=== PATIENT | male | born 1990 | race Hispanic/Latino ===

== ENCOUNTER 2020-06-17 05:02 | Emergency (ER) | payer SELFPAY ==
--- OUTSIDE RECORDS SUMMARY | 2020-06-17 05:04 | XMS REPORT | Continuity of Care Document ---
:1990 Author Organization [facility] t Address [address] [place] [address] Dr. Ad[address] [place] [address] Care Team Providers Name Role Phone Maxime DE LA ROSA P Attending Clinician Unavailable Problems This patient has no known problems. Allergies, Adverse Reactions, Alerts This patient has no known allergies or adverse reactions. Medications This patient has no known medications. Procedures This patient has no known procedures. Encounters Start End Encounter Admission Attending Care Care Encounter Source Date/Time Date/Time Type Type Clinicians Facility Department ID 2019-10-22 2019-10-22 Telephone SHILA Swartz [id number] 00:00:00 00:00:00 Keren NAGEL [id number] [facility] [id number] Results This patient has no known results.
--- NOTE | 2020-06-17 07:10 | EDPHYS ---
Physician Documentation [facility] Name: Teodoro Lopez Age: 30 yrs Sex: Male : 1990 Arrival Date: 06/17/2020 Time: 05:06 Bed 19 Private MD: ED Physician Yoni Elkins HPI: 06/17 06:55 This 30 yrs old Male presents to ER via Ambulatory with complaints of tw4 Shortness Of Breath, Chest Pain. 06:55 The patient has shortness of breath with light activity. Onset: The symptoms/episode tw4 began/occurred 3 day(s) ago. Duration: The symptoms are continuous, and are unchanged since they started. The patient's shortness of breath has no apparent modifying factors. Associated signs and symptoms: The patient has no apparent associated signs or symptoms. Severity of symptoms: At their worst the symptoms were moderate in the emergency department the symptoms are unchanged. The patient has not experienced similar symptoms in the past. Historical: - Allergies: 05:21 No Known Allergies; sg - Home Meds: 05:21 None [Active]; sg - PMHx: 05:21 None; sg - Immunization history:: Adult Immunizations up to date. - Social history:: Smoking status: Patient reports the use of cigarette tobacco products. ROS: 06:55 Constitutional: Negative for fever, chills, and weight loss, Eyes: Negative for injury, tw4 pain, redness, and discharge, Cardiovascular: Negative for chest pain, palpitations, and edema, Abdomen/GI: Negative for abdominal pain, nausea, vomiting, diarrhea, and constipation, Back: Negative for injury and pain, MS/Extremity: Negative for injury and deformity, Skin: Negative for injury, rash, and discoloration, Neuro: Negative for headache, weakness, numbness, tingling, and seizure. 06:55 Respiratory: Positive for shortness of breath, Negative for dyspnea on exertion, hemoptysis, orthopnea, pleurisy. Exam: 06:55 Constitutional: This is a well developed, well nourished patient who is awake, alert, tw4 and in no acute distress. Head/Face: Normocephalic, atraumatic. Chest/axilla: Normal chest wall appearance and motion. Nontender with no deformity. No lesions are appreciated. Cardiovascular: Regular rate and rhythm with a normal S1 and S2. No gallops, murmurs, or rubs. Normal PMI, no JVD. No pulse deficits. Abdomen/GI: Soft, non-tender, with normal bowel sounds. No distension or tympany. No guarding or rebound. No evidence of tenderness throughout. Back: No spinal tenderness. No costovertebral tenderness. Full range of motion. Skin: Warm, dry with normal turgor. Normal color with no rashes, no lesions, and no evidence of cellulitis. MS/ Extremity: Pulses equal, no cyanosis. Neurovascular intact. Full, normal range of motion. Neuro: Awake and alert, GCS 15, oriented to person, place, time, and situation. Cranial nerves II-XII grossly intact. Motor strength 5/5 in all extremities. Sensory grossly intact. Cerebellar exam normal. Normal gait. 06:55 Respiratory: the patient does not display signs of respiratory distress, Respirations: normal, Breath sounds: are clear throughout. Vital Signs: 05:19 BP 136 / 101; Pulse 80; Resp 18; Temp 98.1; Pulse Ox 100% on R/A; Weight 85.73 kg; mg2 Height 5 ft. 6 in. (167.64 cm); 07:23 BP 128 / 92; Pulse 79; Resp 16; Temp 98.1; Pulse Ox 96% ; bp 05:19 Body Mass Index 30.51 (85.73 kg, 167.64 cm) mg2 MDM: 06:35 Patient medically screened. tw4 06:55 Differential diagnosis: Psychogenic Pulmonary Embolism reactive airway disease, tw4 Unstable Angina. Data reviewed: vital signs, nurses notes. Data reviewed: lab test result(s), Flu: negative radiologic studies, plain films. Data interpreted: Pulse oximetry: Interpretation: normal. Counseling: I had a detailed discussion with the patient and/or guardian regarding: the historical points, exam findings, and any diagnostic results supporting the discharge/admit diagnosis, lab results, radiology results. 06/17 05:23 Order name: Flu; Complete Time: 07:08 06/17 07:08 Interpretation: Within normal limits. tw4 06/17 05:23 Order name: COVID-19 sg 06/17 05:23 Order name: Chest Pa And Lat (2 Views) XRAY sg Administered Medications: No medications were administered Disposition: 06/17/20 07:08 Discharged to Home. Impression: Other viral infections of unspecified site. - Condition is Stable. - Discharge Instructions: Viral Respiratory Infection. - Prescriptions for Tessalon Perles 100 mg Oral Capsule - take 1 capsule by ORAL route every 8 hours As needed; 15 capsule. Albuterol Sulfate 90 mcg/actuation - inhale 1-2 puff by INHALATION route every 4-6 hours; 1 Inhaler. - Work release form, Medication Reconciliation Form, Thank You Letter, Antibiotic Education, Prescription Opioid Use form. - Follow up: Private Physician; When: Upon discharge from the Emergency Department; Reason: If symptoms return, Recheck today's complaints, Continuance of care, Re-evaluation by your physician. - Problem is new. - Symptoms are unchanged. Signatures: Dispatcher [employer] EDMS Alex Urbano RN RN Chepe Adorno RN RN Yoni Loving MD MD tw4 Corrections: (The following items were deleted from the chart) 07:25 07:08 06/17/2020 07:08 Discharged to Home. Impression: Other viral infections of bp unspecified site. Condition is Stable. Forms are Medication Reconciliation Form, Thank You Letter, Antibiotic Education, Prescription Opioid Use. Follow up: Private Physician; When: Upon discharge from the Emergency Department; Reason: If symptoms return, Recheck today's complaints, Continuance of care, Re-evaluation by your physician. Problem is new. Symptoms are unchanged. tw4
--- NOTE | 2020-06-17 07:10 | ER ---
Nurse's Notes [facility] Name: Teodoro Lopez Age: 30 yrs Sex: Male : 1990 Arrival Date: 06/17/2020 Time: 05:06 Bed 19 Private MD: Diagnosis: Other viral infections of unspecified site Presentation: 06/17 05:19 Chief complaint: Patient states: Im having chest pain, worsens with deep breathing, sg activity and cough, states feeling short of breath both while resting and with activity, unsure of any fever but denies having chills at this time for triage. Coronavirus screen: Client denies travel out of the [place] in the last 14 days. shortness of breath, Client presents with at least one sign or symptom that may indicate coronavirus-19. Standard/surgical mask placed on the client. Provider contacted for isolation considerations. Ebola Screen: Patient negative for fever greater than or equal to 101.5 degrees Fahrenheit, and additional compatible Ebola Virus Disease symptoms Patient denies exposure to infectious person. Patient denies travel to an Ebola-affected area in the 21 days before illness onset. No symptoms or risks identified at this time. Initial Sepsis Screen: Does the patient meet any 2 criteria? HR > 90 bpm. Does the patient have a suspected source of infection? No. Patient's initial sepsis screen is negative. Risk Assessment: Do you want to hurt yourself or someone else? Patient reports no desire to harm self or others. Onset of symptoms was June 15, 2020. Care prior to arrival: None. Transition of care: patient was not received from another setting of care. 05:19 Acuity: CAS 3 sg 05:19 Method Of Arrival: Ambulatory 05:19 Chief complaint: Patient states: i worked in [facility] [facility] and for 3 days ramses been mg2 having diarrhea, cough, chest pain and shortness of breath. my COVID test is pending result. Coronavirus screen: Client denies travel out of the [place] in the last 14 days. Client presents with at least one sign or symptom that may indicate coronavirus-19. Standard/surgical mask placed on the client. Provider contacted for isolation considerations. The client indicates previous COVID test results are pending. Date of collection: June 16, 2020. Ebola Screen: No symptoms or risks identified at this time. Initial Sepsis Screen: Does the patient meet any 2 criteria? No. Patient's initial sepsis screen is negative. Does the patient have a suspected source of infection? No. Patient's initial sepsis screen is negative. Risk Assessment: Do you want to hurt yourself or someone else?. Onset of symptoms was June 2020. 05:19 Method Of Arrival: Ambulatory mg2 05:19 Acuity: CAS 3 mg2 Triage Assessment: 06:00 General: Appears in no apparent distress. comfortable, Behavior is calm, cooperative. mg2 Respiratory: the patient has mild shortness of breath. Respiratory: Onset: The symptoms/episode began/occurred 3 days ago. Historical: - Allergies: 05:21 No Known Allergies; sg - Home Meds: 05:21 None [Active]; sg - PMHx: 05:21 None; sg - Immunization history:: Adult Immunizations up to date. - Social history:: Smoking status: Patient reports the use of cigarette tobacco products. Screenin:59 Abuse screen: Denies threats or abuse. Denies injuries from another. Nutritional mg2 screening: No deficits noted. Tuberculosis screening: No symptoms or risk factors identified. Fall Risk None identified. Assessment: 05:58 General: Appears in no apparent distress. comfortable, Behavior is calm, cooperative. mg2 Pain: Complains of pain in chest Quality of pain is described as tight. Neuro: Level of Consciousness is awake, alert, obeys commands, Oriented to person, place, time, situation. Cardiovascular: Rhythm is regular. Respiratory: Airway is patent Respiratory effort is even, unlabored, Respiratory pattern is regular, symmetrical. GI: Reports diarrhea. : No signs and/or symptoms were reported regarding the genitourinary system. EENT: No signs and/or symptoms were reported regarding the EENT system. Derm: Skin is intact, is healthy with good turgor, Skin is pink, warm \T\ dry. normal. Musculoskeletal: Circulation, motion, and sensation intact. Capillary refill < 3 seconds. 07:00 Reassessment: RECD REPORT FROM DUTCH DE LA ROSA. 30YO HM P/W SOB AND COUGH. LAB RESULTS bp PENDING. Respiratory: Airway is patent Respiratory effort is even, unlabored, Breath sounds are clear bilaterally. 07:22 Reassessment: PT D/C HOME AMBULATORY ON HOME QUARANTINE. DX WITH VIRAL URI. bp Vital Signs: 05:19 BP 136 / 101; Pulse 80; Resp 18; Temp 98.1; Pulse Ox 100% on R/A; Weight 85.73 kg; mg2 Height 5 ft. 6 in. (167.64 cm); 07:23 BP 128 / 92; Pulse 79; Resp 16; Temp 98.1; Pulse Ox 96% ; bp 05:19 Body Mass Index 30.51 (85.73 kg, 167.64 cm) mg2 ED Course: 05:06 Patient arrived in ED. am2 05:19 Scottie Mccabe, RN is Primary Nurse. mg2 05:19 Arm band placed on. sg 05:21 Triage completed. sg 05:21 Yoni Elkins MD is Attending Physician. sg 05:59 Patient has correct armband on for positive identification. mg2 05:59 No provider procedures requiring assistance completed. Patient did not have IV access mg2 during this emergency room visit. 06:00 Chest Pa And Lat (2 Views) XRAY In Process Unspecified. EDMS 06:20 COVID swab sent to lab. mg2 Administered Medications: No medications were administered Outcome: 07:08 Discharge ordered by . tw4 07:22 Discharged to home ambulatory. bp 07:22 Condition: stable 07:22 Discharge instructions given to patient, Instructed on discharge instructions, follow up and referral plans. medication usage, Demonstrated understanding of instructions, follow-up care, medications, Prescriptions given X 2. 07:25 Patient left the ED. bp Addendum: 06/20/2020 16:42 Addendum: COVID-19 Result: Negative result given to RN to notify pt. Left voice mail. a a5 Signatures: Dispatcher [employer] EDPA Alex Urbano RN RN sg Bella Lea, RN RN aa5 Cheyanne Luke am2 Chepe Ware RN RN bp Yoni Elkins MD MD tw4 Scottie Mccabe, RJ RN mg2
--- NOTE | 2020-06-17 11:13 | RAD REPORT ---
EXAM DESCRIPTION: RAD - Chest Pa And Lat (2 Views) - 06/17/2020 6:01 am CLINICAL HISTORY: SOB COMPARISON: None TECHNIQUE: Frontal and lateral views of the chest were obtained. FINDINGS: The lungs are clear. Heart size is normal and central vasculature is within normal limit s. No pleural effusion or pneumothorax seen. No acute bony finding noted. No aortic abnormality. IMPRESSION: No acute cardiopulmonary process.
[2020-06-20 22:47] VITALS: TEMP 98.1
[2020-06-20 22:49] VITALS: BP 128/92; O2SAT 96
== END 2020-06-17 07:25 | disposition home or self-care (01) ==
LOC: ER 05:02
DX: B34.8 Other viral infections of unspecified site (principal); Z20.828 Contact with and (suspected) exposure to other viral communicable diseases; Z72.0 Tobacco use
CPT/HCPCS: 71046; 87804; 99283; U0002

== ENCOUNTER 2021-02-06 10:41 | Emergency (ER) | payer SELFPAY ==
--- OUTSIDE RECORDS SUMMARY | 2021-02-06 10:45 | XMS REPORT | Continuity of Care Document ---
:1990 Author Organization [facility] t Address [address] [place] [address] Dr. Adler. [address] [place] [address] Care Team Providers Name Role Phone Maxime [...] Department ID 2019-10-22 2019-10-22 Telephone SHILA Swartz [id number] 00:00:00 00:00:00 Keren NAGEL [id number] [facility] [id number] Results This patient has no known results.
--- NOTE | 2021-02-06 14:38 | ER ---
Nurse's Notes [facility] Name: Teodoro Lopez Age: 30 yrs Sex: Male : 1990 Arrival Date: 02/06/2021 Time: 10:45 Bed Waiting Private MD: Diagnosis: Presentation: 02/06 11:21 Chief complaint: Patient states: Tenderness to R side of face that began last night and ss swelling that was noticed this morning. Denies fever. Coronavirus screen: Client denies travel out of the [place] in the last 14 days. Ebola Screen: Patient denies exposure to infectious person. Patient denies travel to an Ebola-affected area in the 21 days before illness onset. Initial Sepsis Screen: Does the patient meet any 2 criteria? No. Patient's initial sepsis screen is negative. Does the patient have a suspected source of infection? No. Patient's initial sepsis screen is negative. Risk Assessment: Do you want to hurt yourself or someone else? Patient reports no desire to harm self or others. Onset of symptoms was February 05, 2021. 11:21 Method Of Arrival: Ambulatory 11:21 Acuity: CAS 3 ss Historical: - Allergies: 11:22 Naproxen; ss - Home Meds: 11:22 None [Active]; ss - PMHx: 11:22 None; ss - PSHx: 11:22 R ankle; ss - Immunization history:: Adult Immunizations up to date, Client reports receiving the 1st dose of the Covid vaccine. - Social history:: Smoking status: Patient denies any tobacco usage or history of. Assessment: 13:59 Reassessment: Pt called to exam room. No answer. Unable to locate patient. 14:36 Reassessment: Called to exam room. No answer. Unable to locate patient. Vital Signs: 11:21 BP 140 / 92; Pulse 72; Resp 16; Temp 97.4(TE); Pulse Ox 100% on R/A; Weight 84.37 kg; ss Height 5 ft. 6 in. (167.64 cm); Pain 8/10; 11:21 Body Mass Index 30.02 (84.37 kg, 167.64 cm) ED Course: 10:45 Patient arrived in ED. mr 11:22 Triage completed. ss 11:22 Arm band placed on right wrist. ss Administered Medications: No medications were administered Outcome: 14:37 Eloped from waiting room, before seeing physician ss 14:37 unknown 14:37 Patient left the ED. Signatures: Christine Prescott Shelby, RN RN ss
[2021-02-06 14:48] VITALS: BP 140/92; TEMP 97.4; O2SAT 100
== END 2021-02-06 14:37 | disposition left against medical advice (07) ==
LOC: ER 10:41
DX: Z53.21 Procedure and treatment not carried out due to patient leaving prior to being seen by health care provider (principal)
CPT/HCPCS: 99281